=== PATIENT | female | born 1975 | race Caucasian/White ===

== ENCOUNTER → 2017-10-25 11:14 | Outpatient (CLI) | payer BC, SELFPAY ==
--- NOTE | 2017-10-25 11:15 | MM_ITS ---
MM Dig screening mamm BI w/CAD ORDERING PHYSICIAN : Lucius Damon MD PATIENT AGE: 42 years GENDER: Female COMPARISON: None. Baseline . INDICATION: ITS.REASON: Routine Screening Mammogram 42-year-old. Baseline mammogram. No hormones no new complaints. TECHNIQUE: Standard CC and MLO images were obtained. R2 CAD reviewed. FINDINGS: Dense breast tissue bilaterally which decreases sensitivity mammography. RIGHT BREAST:No focal area of concern on the right. Follow-up one year on the right LEFT BREAST:There is a small focal area of density inferior left breast labeled X. Which seems to dissipate on additional subsequent MLO view performed to include inframammary fold. Motion limits the latter MLO images shows that this this specific area of density is less evident. With this I believe a follow-up left mammogram in 6 months would be adequate to confirm stable baseline characte in this dense breast r. IMPRESSION: Dense breast bilaterally compatible with patient's young age . Mammography is decreased sensitivity in breast of this dense character Areas at the inferior left breast seen on initial MLO view seems to dissipate on subsequent MLO view and is most likely normal fibroglandular tissue but would suggest follow-up left mammogram in 4-6 months to better confirm stable baseline character with routine protocol thereafter BI-RADS Category: 3 Probably Benign Finding Short Term Follow-up RECOMMENDED FOLLOW-UP: 6M -6 MONTH FOLLOW-UP (A letter has been sent to the patient regarding results of the study.)
[2017-10-25 12:22] LABS: Basophils # 0.1 K/mm3 (0-0.2); Basophils % 1.1 % (0.1-2.0); Eosinophils # 0.1 K/mm3 (0.0-0.4); Eosinophils % 1.8 % (0.1-12.0); Hemoglobin 13.6 g/dL (12.2-16.2); Lymphocytes # 1.6 K/mm3 (0.7-4.5); Lymphocytes % 32.7 K/mm3 (10-50); Mean Corpuscular HGB Conc 33.3 g/dL (31.8-35.4); Mean Corpuscular Hemoglobin 30.8 pg (27.0-31.2); Mean Corpuscular Volume 92.7 fl (81-99); Mean Platelet Volume 7.8 fl (7.4-10.4); Monocytes # 0.3 K/mm3 (0.1-1.0); Monocytes % 5.5 % (1.7-9.3); Neutrophils # 2.9 K/mm3 (1.8-7.8); Neutrophils % 58.9 % (37.0-80.0); Platelet Count 210 K/mm3 (142-424); Red Blood Count 4.42 M/mm3 (4.20-5.40); Red Cell Distribution Width 13.2 % (11.5-17.5)
[2017-10-25 12:55] LABS: Alanine Aminotransferase 28 U/L (12-78); Albumin Level 3.8 gm/dL (3.4-5.0); Albumin/Globulin Ratio 1.2 (1.1-1.8); Alkaline Phosphatase 68 U/L (46-116); Aspartate Amino Transferase 18 U/L (15-37); Bilirubin,Total 0.5 mg/dL (0.2-1.0); Blood Urea Nitrogen 13 mg/dL (7-18); Calcium 8.8 mg/dL (8.5-10.1); Carbon Dioxide 29 mmol/L (21.0-32.0); Chloride 105 mmol/L (98-107); Chol/HDL Ratio 2.1 (1-3.5); Cholesterol 147 mg/dL (140-200); Creatinine,Serum 0.83 mg/dL (0.55-1.02); Estimated Glomerular Filt Rate 75 ml/min (>60); GFR (African American) 91 ML/MIN (>60); Globulin 3.3 gm/dl (1.3-3.2); Glucose 87 mg/dL (74-106); HDL Cholesterol 70 mg/dL (29-89); LDL Cholesterol 70 mg/dL (0-130); Sodium 142 mmol/L (136-145); Total Protein,Serum 7.1 gm/dL (6.4-8.2); Triglycerides 36 mg/dL (30-200); VLDL Cholesterol 7 mg/dL (0-40)
== END ==
PROVIDERS: Family Provider Family Medicine; PCP Family Medicine; Visit Provider Nurse Practitioner Obstetrics & Gynecology
DX: Z01.419 Encounter for gynecological examination (general) (routine) without abnormal findings (principal)
CPT/HCPCS: 36415; 77067; 80053; 80061; 85025

== ENCOUNTER → 2017-10-25 11:49 | Outpatient (CLI) | payer BC, SELFPAY | PROVIDERS: Family Provider Family Medicine; PCP Family Medicine; Visit Provider Nurse Practitioner Obstetrics & Gynecology | DX: Z01.419 Encounter for gynecological examination (general) (routine) without abnormal findings (principal) | CPT/HCPCS: 36415; 80053; 80061; 85025 ==

== ENCOUNTER → 2018-11-01 11:24 | Outpatient (CLI) | payer OTHER, SELFPAY ==
--- NOTE | 2018-11-01 11:27 | MM_ITS ---
PROCEDURE: MM DIG SCREENING MAMM BI W/CAD CLINICAL INDICATION: Routine screening mammogram There is no personal or family history of breast cancer COMPARISON: [facility] MM Dig screening mamm BI w/CAD from 10/25/2017 TECHNIQUE: Standard CC and MLO images were obtained. R2 CAD reviewed. FINDINGS: Prominent diffusely heterogenic fibroglandular densities are seen in both breasts. Again noted is a mole marker left breast. There is no suspicious lesion and no suspicious microcalcifications. IMPRESSION: Moderate heterogenic breast density with no suspicious lesions seen BI-RAD Category: 1 Negative FOLLOW-UP: 1YR 1 Year Follow-up (A letter has been sent to the patient regarding results of the study.) Dictated by: Dr. Gerardo Vicente MD 11/03/2018 12:[address] Gerardo Vicente MD in [place] 11/03/2018 12:09
== END ==
PROVIDERS: Visit Provider Nurse Practitioner Obstetrics & Gynecology
DX: Z12.31 Encounter for screening mammogram for malignant neoplasm of breast (principal)
CPT/HCPCS: 77067

== ENCOUNTER → 2020-01-28 11:50 | Outpatient (CLI) | payer MEDICAID, SELFPAY ==
--- NOTE | 2020-01-28 11:54 | MM_ITS ---
PROCEDURE: MM DIG SCREENING MAMM BI W/CAD Referring Doctor: Lucius Damon Patient Age:44Y CLINICAL INDICATION: Routine Screening Mammogram 44-year-old but no hormones but no new complaints noncontributory family history is COMPARISON: [facility] MM Dig screening mamm BI w/CAD from 10/25/2017 MG MM DIG SCREENING MAMM BI W/CAD from 11/01/2018 TECHNIQUE: Standard CC and MLO images were obtained. R2 CAD reviewed. Bilateral digital breast tomosynthesis included. Additional left MLO view. Bilateral CC views FINDINGS: Fairly dense heterogeneous breast with regions of increased bilaterally. Mammography is of decreased sensitivity in breast of this heterogeneous dense pattern. However overall architecture pattern appear similar to studies dating back to 2018 with no discrete new findings. No definite new mass or suspicious mass no suspicious calcifications but bilateral follow-up mammogram 1 year recommended.. I would note that ultrasound may be beneficial screening tool to complement mammography in breast of this dense heterogeneous character-and is particularly useful if any palpable areas or features are encountered Right breast:. No new area of significant concern Patchy areas of density seen today were present previously Left breast but no new areas of suspicion. Patchy asymmetric areas of breast density a similar to previous studies No suspicious clustered micro calcifications either breast. IMPRESSION: No new areas of significant concern either breast. Bilateral follow-up 1 year The heterogeneous, dense patchy breast pattern bilaterally does decrease the sensitivity of mammography-Note comments in text. However we see no new area of significant concern. Bilateral follow-up 1 year recommended and encouraged the BI-RAD Category: 2 Benign Finding(s) FOLLOW-UP: 1YR 1 Year Follow-up (A letter has been sent to the patient regarding results of the study.) Dictated by: Jaron Fernandez MD 01/31/2020 22:34 Jaron Fernandez MD in [place] 01/31/2020 22:34
== END ==
PROVIDERS: PCP Family Medicine; Visit Provider Nurse Practitioner Obstetrics & Gynecology
DX: Z12.31 Encounter for screening mammogram for malignant neoplasm of breast (principal)
CPT/HCPCS: 77063; 77067

== ENCOUNTER → 2021-05-05 16:35 | Outpatient (CLI) | payer BC, SELFPAY ==
--- NOTE | 2021-05-05 16:35 | MM_ITS ---
PROCEDURE INFORMATION: Exam: MG Bilateral Screening 3D Mammography Exam date and time: 05/05/2021 4:35 PM Age: 45 years old Clinical indication: Encounter for screening mammogram for malignant neoplasm of breast; Additional info: Screening xmg TECHNIQUE: Imaging protocol: Bilateral Screening tomosynthesis and 2D mammography including computer-aided detection (CAD) when performed. COMPARISON: 1. MG MM DIG SCREENING MAMM BI W/CAD 01/28/2020 11:54 AM 2. MG MM DIG SCREENING MAMM BI W/CAD 11/01/2018 11:34 AM 3. MG [facility] MM Dig screening mamm BI w/CAD 10/25/2017 11:22 AM FINDINGS: MAMMOGRAPHY: Breast composition: The breasts are heterogeneously dense, which may obscure small masses. Mass: No suspicious masses. Architectural distortion: No suspicious distortion. Calcifications: No suspicious calcifications. Asymmetric density: None. Skin thickening: None. Axillary adenopathy: None. IMPRESSION: No mammographic evidence of malignancy. Annual screening is recommended unless otherwise clinically indicated. ASSESSMENT: BI-RADS Category 1: Negative
== END ==
PROVIDERS: PCP Family Medicine; Visit Provider Nurse Practitioner Obstetrics & Gynecology
DX: Z12.31 Encounter for screening mammogram for malignant neoplasm of breast (principal)
CPT/HCPCS: 77063; 77067

== ENCOUNTER → 2022-09-16 14:21 | Outpatient (CLI) | payer BC, SELFPAY ==
--- NOTE | 2022-09-16 14:21 | MM_ITS ---
PROCEDURE INFORMATION: Exam: MG Bilateral Screening 3D Mammography Exam date and time: 09/16/2022 2:13 PM Age: 46 years old Clinical indication: Screening examination; No personal or family history of breast cancer TECHNIQUE: Imaging protocol: Bilateral Screening tomosynthesis and 2D mammography including computer-aided detection (CAD) when performed. COMPARISON: 1. MG MM DIG SCREENING MAMM BI W/CAD 05/05/2021 4:30 PM 2. MG MM DIG SCREENING MAMM BI W/CAD 01/28/2020 11:54 AM FINDINGS: MAMMOGRAPHY: Breast composition: The breasts are extremely dense, which lowers the sensitivity of mammography. Mass: None. Architectural distortion: None. Calcifications: No suspicious calcifications. Asymmetric density: None. Skin thickening: None. Axillary adenopathy: None. IMPRESSION: No mammographic evidence of malignancy. Annual screening is recommended unless otherwise clinically indicated. ASSESSMENT: BI-RADS Category 1: Negative
== END ==
PROVIDERS: PCP Family Medicine; Visit Provider Nurse Practitioner Obstetrics & Gynecology
DX: Z12.31 Encounter for screening mammogram for malignant neoplasm of breast (principal)
CPT/HCPCS: 77063; 77067

== ENCOUNTER 2024-01-05 14:06 | Outpatient (CLI) | payer OTHER, SELFPAY ==
--- NOTE | 2024-01-05 14:06 | MM_ITS ---
PROCEDURE INFORMATION: Exam: MG Bilateral Screening 3D Mammography Exam date and time: 01/05/2024 2:07 PM Age: 48 years old Clinical indication: Screening examination. TECHNIQUE: Imaging protocol: Bilateral Screening tomosynthesis and 2D mammography including computer-aided detection (CAD) when performed. COMPARISON: MG MM DIG SCREENING MAMM BI W/CAD 09/16/2022 2:13 PM FINDINGS: MAMMOGRAPHY: Breast composition: The breasts are heterogeneously dense, which may obscure small masses. Mass: None. Architectural distortion: None. Calcifications: No suspicious calcifications. Asymmetric density: None. Skin thickening: None. Axillary adenopathy: None. IMPRESSION: No mammographic evidence of malignancy. Annual screening is recommended unless otherwise clinically indicated. ASSESSMENT: BI-RADS Category 1: Negative.
== END 2024-01-05 23:59 | disposition home or self-care (01) ==
LOC: RAD 14:06
PROVIDERS: PCP Nurse Practitioner Obstetrics & Gynecology; Visit Provider Nurse Practitioner Obstetrics & Gynecology
DX: Z12.31 Encounter for screening mammogram for malignant neoplasm of breast (principal)
CPT/HCPCS: 77063; 77067